=== PATIENT | male | born 1960 | race Caucasian/White ===

== ENCOUNTER 2021-03-02 08:43 | Outpatient (CLI) | payer MEDICARE | END 2021-03-02 08:44 | disposition home or self-care (01) | LOC: CSHULT 08:43 | PROVIDERS: ATTEND Family Medicine | DX: R10.31 Right lower quadrant pain (principal) | CPT/HCPCS: 76999 ==

== ENCOUNTER 2022-09-26 08:21 | Outpatient (CLI) | payer MEDICARE | END 2022-09-26 08:22 | disposition home or self-care (01) | LOC: CSHWCC 08:21 | PROVIDERS: ATTEND Nurse Practitioner Family | DX: I87.2 Venous insufficiency (chronic) (peripheral) (principal); R60.0 Localized edema | CPT/HCPCS: 97139; G0463; 99214 ==